=== PATIENT | female | born 1995 | race Two or more races ===

== ENCOUNTER 2018-02-11 15:12 | Emergency (ER) | payer MEDICAID ==
[~2018-02-11] VITALS: Ht 152.4 cm; Wt 56.0 kg
[2018-02-11 16:31] VITALS: BP 114/67
== END 2018-02-11 18:10 | disposition home or self-care (01) ==
LOC: ER 15:18
DX: O26.891 Other specified pregnancy related conditions, first trimester (principal); J32.9 Chronic sinusitis, unspecified; Z3A.01 Less than 8 weeks gestation of pregnancy

== ENCOUNTER 2018-02-22 19:06 | Emergency (ER) | payer MEDICAID ==
[~2018-02-22] VITALS: Ht 152.4 cm; Wt 56.7 kg
[2018-02-22 20:22] LABS: Basophils # (auto) 0.1 uL; Basophils % (auto) 0.6 % (0.0-2.0); Lymphocytes # (auto) 2.4 uL; Mean Corpuscular Volume 76.6 fL (80.0-100.0); Neutrophils # (auto) 5.7 uL
[2018-02-22 20:24] LABS: Eosinophils # (auto) 0.5 uL; Eosinophils % (auto) 5.6 % (0.0-7.0); Hematocrit 35.3 % (36.0-46.0); Hemoglobin 11.8 g/dL (12.2-16.2); Mean Corpuscular Hemoglobin 25.7 pg (28.0-32.0); Mean Corpuscular Hgb Conc. 33.5 g/dL (32.0-36.0); Monocytes # (auto) 0.5 uL; Monocytes % (auto) 5.1 % (0.0-12.0); Neutrophils % (auto) 62.7 % (37.0-80.0); Platelet Count (auto) 364 10^3/uL (140-450); Red Blood Cells 4.61 10^6/uL (4.0-5.20); Red Cell Distribution Width 16.6 % (11.8-14.3); White Blood Cell 9.2 10^3/uL (4.4-10.8)
[2018-02-22 20:38] LABS: Albumin 3.7 g/dL (3.4-5.0); BUN/Creatinine Ratio 17.2; Calcium 8.9 mg/dL (8.5-10.1); Potassium 3.9 mmol/L (3.5-5.1)
[2018-02-22 20:41] LABS: Bilirubin, Total 0.1 mg/dL (0.2-1.0); Total Protein 7.6 g/dL (6.4-8.2)
[2018-02-22 21:54] LABS: Urine WBC None Seen /hpf (0 - 5)
[2018-02-22 22:05] LABS: Urine Amorphous Crystal MOD /hpf (None Seen); Urine Bacteria NONE SEEN /hpf (None Seen); Urine Blood 2+ /uL (Negative); Urine Specific Gravity 1.023 (1.001-1.035)
[2018-02-23 00:02] VITALS: BP 117/72
== END 2018-02-23 00:20 | disposition home or self-care (01) ==
LOC: ER 19:06
DX: O03.9 Complete or unspecified spontaneous abortion without complication (principal); Z3A.00 Weeks of gestation of pregnancy not specified
CPT/HCPCS: 36415; 76801; 76817; 80053; 81001; 84702; 85025

== ENCOUNTER 2019-04-04 19:28 | Emergency (ER) | payer MEDICAID ==
[~2019-04-04] VITALS: Ht 152.4 cm; Wt 60.0 kg
[2019-04-04 20:12] LABS: Basophils # (auto) 0 uL; Basophils % (auto) 0.3 % (0.0-2.0); Eosinophils # (auto) 0.3 uL; Eosinophils % (auto) 2.2 % (0.0-7.0); Hematocrit 35.8 % (36.0-46.0); Hemoglobin 12.1 g/dL (12.2-16.2); Lymphocytes # (auto) 1.6 uL; Lymphocytes % (auto) 13.6 % (10.0-50.0); Mean Corpuscular Hemoglobin 28.2 pg (28.0-32.0); Mean Corpuscular Hgb Conc. 33.9 g/dL (32.0-36.0); Mean Corpuscular Volume 83.2 fL (80.0-100.0); Monocytes # (auto) 0.6 uL; Monocytes % (auto) 5.1 % (0.0-12.0); Neutrophils # (auto) 9.5 uL; Neutrophils % (auto) 78.8 % (37.0-80.0); Nucleated Red Blood Cells % 0.1 %; Platelet Count (auto) 282 10^3/uL (140-450); Red Cell Distribution Width 18.1 % (11.8-14.3); White Blood Cell 12.1 10^3/uL (4.4-10.8)
[2019-04-04 20:31] LABS: Albumin 2.9 g/dL (3.4-5.0); Calcium 8.6 mg/dL (8.5-10.1); Potassium 3.7 mmol/L (3.5-5.1)
[2019-04-04 20:38] LABS: Bilirubin, Total 0.2 mg/dL (0.2-1.0); Total Protein 7.2 g/dL (6.4-8.2)
[2019-04-04] MEDS ORDERED: SODIUM CHLORIDE 0.9% 1,000 ML IV ONE (21:00)
[2019-04-04 22:11] VITALS: BP 110/58
== END 2019-04-04 22:47 | disposition home or self-care (01) ==
LOC: ER 19:28
DX: O26.893 Other specified pregnancy related conditions, third trimester (principal); R42 Dizziness and giddiness; R11.2 Nausea with vomiting, unspecified; Z3A.28 28 weeks gestation of pregnancy
CPT/HCPCS: 36415; 80053; 81002; 81025; 83735; 84702; 85025; 99283; J7030

== ENCOUNTER 2019-06-04 09:13 | Observation (INO) | payer MEDICAID | END 2019-06-04 10:05 | disposition home or self-care (01) | DRG 566 | LOC: LDRP 09:13 | PROVIDERS: ADMIT Obstetrics & Gynecology; ATTEND Obstetrics & Gynecology | DX: O62.9 Abnormality of forces of labor, unspecified (principal); Z3A.37 37 weeks gestation of pregnancy | CPT/HCPCS: 59025; 81002; G0378 ==

== ENCOUNTER 2019-06-12 15:50 | Observation (INO) | payer MEDICAID ==
[2019-06-12] MEDS ORDERED: PREN-96 PO (16:13)
[2019-06-12] MEDS ORDERED: LACTATED RINGER'S 1,000 ML IV ONE (16:28)
[2019-06-12 20:06] LABS: Amphetamine Screen, Urine NEGATIVE (NEGATIVE); Barbiturate Scree,Urine NEGATIVE (NEGATIVE); Benzodiazephine Screen, Urine NEGATIVE (NEGATIVE); Cannabinoid Screen, Urine NEGATIVE (NEGATIVE); Cocaine Screen, Urine NEGATIVE (NEGATIVE); Opiate Scree,Urine NEGATIVE (NEGATIVE); Phencyclidine Screen, Urine NEGATIVE (NEGATIVE)
== END 2019-06-12 18:40 | disposition home or self-care (01) | DRG 566 ==
LOC: LDRP 15:50
PROVIDERS: ADMIT Obstetrics & Gynecology; ATTEND Obstetrics & Gynecology
DX: O36.8130 Decreased fetal movements, third trimester, not applicable or unspecified (principal); Z3A.38 38 weeks gestation of pregnancy
CPT/HCPCS: 59025; 76818; 80307; 81002; 96365; 96366; G0378

== ENCOUNTER 2019-12-29 18:41 | Emergency (ER) | payer MEDICAID, OTHER ==
[~2019-12-29] VITALS: Ht 152.4 cm; Wt 55.8 kg
[~2019-12-29 18:41] MED LIST: PREN-96 PO
[2019-12-29 21:30] VITALS: BP 112/69
[2019-12-29] MEDS ORDERED: ACETAMINOPHEN 500 MG TAB PO ONE (21:45)
[2019-12-29] MEDS ORDERED: IBUPROFEN 800 MG TAB PO ONE (21:45)
== END 2019-12-29 23:35 | disposition home or self-care (01) ==
LOC: ER 18:41
DX: S13.9XXA Sprain of joints and ligaments of unspecified parts of neck, initial encounter (principal); S20.211A Contusion of right front wall of thorax, initial encounter; V89.2XXA Person injured in unspecified motor-vehicle accident, traffic, initial encounter; Y93.89 Activity, other specified; Y92.89 Other specified places as the place of occurrence of the external cause; Y99.8 Other external cause status
CPT/HCPCS: 70450; 70486; 71045; 72125

== ENCOUNTER 2020-10-30 18:31 | Emergency (ER) | payer MEDICAID ==
[~2020-10-30] VITALS: Ht 152.4 cm; Wt 57.6 kg
[2020-10-30 19:42] VITALS: BP 126/77
== END 2020-10-30 22:05 | disposition home or self-care (01) ==
LOC: ER 18:33
DX: F41.1 Generalized anxiety disorder (principal); R07.89 Other chest pain
CPT/HCPCS: 71045

== ENCOUNTER 2021-01-26 17:30 | Emergency (ER) | payer MEDICAID ==
[~2021-01-26] VITALS: Ht 152.4 cm; Wt 56.7 kg
[2021-01-26] MEDS ORDERED: SODIUM CHLORIDE 0.9% 1,000 ML IV ONE (19:15)
[2021-01-26 19:16] LABS: Urine Bacteria FEW /hpf (None Seen); Urine Blood 3+ /uL (Negative); Urine Mucus FEW (None Seen); Urine Specific Gravity 1.023 (1.001-1.035); Urine WBC 45 /hpf (0 - 5)
[2021-01-26 21:58] LABS: Basophils # (auto) 0.1 10 ^3/uL (0-0.2); Basophils % (auto) 0.6 % (0.0-2.0); Eosinophils # (auto) 0.5 10 ^3/uL (0-0.8); Eosinophils % (auto) 5.1 % (0.0-7.0); Hemoglobin 11.3 g/dL (12.2-16.2); Mean Corpuscular Volume 70.5 fL (80.0-100.0); Monocytes # (auto) 0.5 10 ^3/uL (0-1.3)
[2021-01-26 22:01] LABS: Hematocrit 34.2 % (36.0-46.0); Lymphocytes % (auto) 29.6 % (10.0-50.0); Mean Corpuscular Hemoglobin 23.2 pg (28.0-32.0); Mean Corpuscular Hgb Conc. 32.9 g/dL (32.0-36.0); Neutrophils % (auto) 59.7 % (37.0-80.0); Red Blood Cells 4.85 10^6/uL (4.0-5.20); Red Cell Distribution Width 15.2 % (11.8-14.3)
[2021-01-26 22:16] LABS: BUN/Creatinine Ratio 15.6; Potassium 4.3 mmol/L (3.5-5.1)
[2021-01-26] MEDS ORDERED: CEFD300C2 PO (22:34)
[2021-01-26] MEDS ORDERED: IBUP600T27 PO (22:34)
[2021-01-27 00:06] VITALS: BP 143/83
== END 2021-01-27 00:11 | disposition home or self-care (01) ==
LOC: ER 17:30
DX: N39.0 Urinary tract infection, site not specified (principal); N12 Tubulo-interstitial nephritis, not specified as acute or chronic
CPT/HCPCS: 36415; 80048; 81001; 83605; 85025